=== PATIENT | female | born 1990 | race Caucasian/White ===

== ENCOUNTER 2017-09-26 09:14 | Emergency (ER) | payer OTHER, BC ==
[~2017-09-26] VITALS: Ht 160 cm; Wt 66.7 kg
[2017-09-26 09:20] VITALS: Ht 160 cm; Wt 66.7 kg
[2017-09-26 12:30] VITALS: BP 94/56
== END 2017-09-26 12:30 | disposition home or self-care (01) ==
LOC: ED 09:14
DX: G43.909 Migraine, unspecified, not intractable, without status migrainosus (principal); R11.0 Nausea; H53.149 Visual discomfort, unspecified
CPT/HCPCS: J0780; J1885

== ENCOUNTER 2017-10-30 20:39 | Emergency (ER) | payer OTHER, BC ==
[~2017-10-30] VITALS: Ht 160 cm; Wt 65.1 kg
[2017-10-30 20:50] VITALS: Ht 160 cm; Wt 65.1 kg
[2017-10-30 21:56] LABS: BASOPHIL % 0.3 % (0-2); PLATELET COUNT 207 x10^3mcL (130-400); RED CELL DISTRIBUTION WIDTH 12.9 % (11.5-14.5)
[2017-10-30 22:04] LABS: CALCIUM 8.7 mg/dL (8.5-10.1); CARBON DIOXIDE 21.8 mmol/L (21-32); CHLORIDE SERUM 102 mmol/L (98-107); CREATININE SERUM 0.9 mg/dL (0.6-1.0); GFR1 > 60 mL/min; GLUCOSE SERUM 88 mg/dL (74-106); POTASSIUM SERUM 3.1 mmol/L (3.5-5.1); SODIUM SERUM 133 mmol/L (136-145)
[2017-10-30 22:09] LABS: ALKALINE PHOSPHATASE 47 U/L (46-116); ALT/SGPT 18 U/L (14-59); AST/SGOT 17 U/L (15-37); BILIRUBIN TOTAL 0.58 mg/dL (0.20-1.00); TOTAL PROTEIN, SERUM 7.7 g/dL (6.4-8.2)
[2017-10-30 22:26] LABS: UA SPECIFIC GRAVITY 1.015 (1.005-1.035); microscopic required? YES; urine erythrocyte TRACE (NEGATIVE)
[2017-10-30 23:56] VITALS: BP 93/54
== END 2017-10-30 23:56 | disposition home or self-care (01) ==
LOC: ED 20:39
PROVIDERS: Emergency Medicine
DX: B34.9 Viral infection, unspecified (principal)
CPT/HCPCS: J1885; J2270; J2405; J7030

== ENCOUNTER 2018-03-19 13:58 | Emergency (ER) | payer OTHER ==
[~2018-03-19] VITALS: Ht 157.5 cm; Wt 66.7 kg
[2018-03-19 14:29] VITALS: Ht 157.5 cm; Wt 66.7 kg
[2018-03-19 17:18] LABS: BASOPHIL % 0.3 % (0-2); PLATELET COUNT 223 x10^3mcL (130-400); RED CELL DISTRIBUTION WIDTH 12.9 % (11.5-14.5)
[2018-03-19 17:20] LABS: UA SPECIFIC GRAVITY 1.015 (1.005-1.035); microscopic required? YES; urine erythrocyte TRACE (NEGATIVE)
[2018-03-19 17:30] LABS: CALCIUM 8.9 mg/dL (8.5-10.1); CARBON DIOXIDE 23.7 mmol/L (21-32); CHLORIDE SERUM 107 mmol/L (98-107); CREATININE SERUM 1.1 mg/dL (0.6-1.0); GFR1 > 60 mL/min; GLUCOSE SERUM 91 mg/dL (74-106); POTASSIUM SERUM 3.7 mmol/L (3.5-5.1); SODIUM SERUM 138 mmol/L (136-145)
[2018-03-19 17:35] LABS: ALBUMIN 3.8 g/dL (3.4-5.0); ALKALINE PHOSPHATASE 53 U/L (46-116); ALT/SGPT 22 U/L (14-59); AST/SGOT 22 U/L (15-37); BILIRUBIN TOTAL 0.24 mg/dL (0.20-1.00); LIPASE 133 IU/L (73-393); TOTAL PROTEIN, SERUM 7.6 g/dL (6.4-8.2)
[2018-03-19 18:49] VITALS: BP 112/64
== END 2018-03-19 18:49 | disposition home or self-care (01) ==
LOC: ED 13:58
PROVIDERS: Emergency Medicine
DX: K56.7 Ileus, unspecified (principal)
CPT/HCPCS: J2270; Q9967

== ENCOUNTER → 2018-03-29 | Outpatient (CLI) | payer OTHER | END | disposition home or self-care (01) | LOC: US 09:12 | PROC: BW4GZZZ Ultrasonography of Pelvic Region (ICD-10-PCS; principal; 2018-03-29) | DX: N70.11 Chronic salpingitis (principal) ==

== ENCOUNTER 2018-11-16 13:53 | Emergency (ER) | payer OTHER ==
[~2018-11-16] VITALS: Ht 160 cm; Wt 66.7 kg
[2018-11-16 13:59] VITALS: BP 128/77; Ht 160 cm; Wt 66.7 kg
== END 2018-11-16 14:48 | disposition home or self-care (01) ==
LOC: ED 13:53
DX: S06.0X1A Concussion with loss of consciousness of 30 minutes or less, initial encounter (principal); G43.909 Migraine, unspecified, not intractable, without status migrainosus; Z87.442 Personal history of urinary calculi; I10 Essential (primary) hypertension; W22.8XXA Striking against or struck by other objects, initial encounter; Y93.89 Activity, other specified; Y92.89 Other specified places as the place of occurrence of the external cause; Y99.8 Other external cause status

== ENCOUNTER 2018-11-22 22:45 | Emergency (ER) | payer OTHER ==
[~2018-11-22] VITALS: Ht 157.5 cm; Wt 66.7 kg
[2018-11-22 22:56] VITALS: Ht 157.5 cm; Wt 66.7 kg
[2018-11-23 01:55] VITALS: BP 109/71
== END 2018-11-23 01:55 | disposition home or self-care (01) ==
LOC: ED 22:45
DX: S06.0X0A Concussion without loss of consciousness, initial encounter (principal); G43.909 Migraine, unspecified, not intractable, without status migrainosus; I10 Essential (primary) hypertension; M41.9 Scoliosis, unspecified; Z87.442 Personal history of urinary calculi; W22.8XXA Striking against or struck by other objects, initial encounter; Y93.89 Activity, other specified; Y92.89 Other specified places as the place of occurrence of the external cause; Y99.8 Other external cause status
CPT/HCPCS: J1200; J2765; J7030